=== PATIENT | female | born 1975 | race Caucasian/White ===

== ENCOUNTER 2016-05-31 14:45 | Emergency (ER) | payer OTHER ==
[~2016-05-31] VITALS: Ht 165.1 cm; Wt 47.3 kg
[~2016-05-31 14:45] MED LIST: ACT/35 PO; CYAN10002 IM; RABE20TA5 PO
[2016-05-31 14:48] VITALS: TEMP 36.7; Ht 165.1 cm; Wt 47.3 kg
[2016-05-31] MEDS ORDERED: SODIUM CHLORIDE 0.9% 1000ML 1,000 ML IV ONE (15:19)
[2016-05-31] MEDS ORDERED: HYDROmorphone INJ 1 MG/ML SYR IV STA ×2 (15:19→16:20)
[2016-05-31] MEDS ORDERED: SODIUM CHLORIDE 0.9% 1000ML 1,000 ML IV STA (15:19)
[2016-05-31] MEDS ORDERED: ONDANSETRON INJ 2 MG/ML 2 ML VIAL IV STA (15:19)
--- NOTE | 2016-05-31 15:29 | EMERGENCY ROOM VISIT NOTE ---
History Report prepared by Joceline: Letha Zhang Under the Supervision of: Dr. Fili Mejia M.D. First contact with patient: 15:01 Chief Complaint: ABDOMINAL PAIN Stated Complaint: FLARE UP FROM CROHNS DISEASE Nursing Triage Summary: Patient c/o abdominal pain and N/V. Denies diarrhea. Hx of crohns. History of Present Illness The patient is a 40 year old female who presents to the Emergency Room with complaints of constant right sided middle abdominal pain starting 1 day [employer]. The patient states that she has a history of Crohn's disease and has had a flair up for the last week with intermittent abdominal pain and then last night the pain worsened and became constant. The patient currently rates the pain as a 8/10 in severity. The patient states that her Crohn's disease is usually well manage and she last had surgery in 2013 with part of her intestines removed. She states that since she recently gave April 08, 2016 she has had more problems regarding her Crohn's disease. The patient states that she has had nausea, vomiting along with some lose stools along with her symptoms. The patient denies any melena, fever, chills, chest pain, sob, calf pain, urinary frequency or burning with urination or any recent sick contact or travel. The patient also denies any complications for having her child and denies any vaginal bleeding or discharge The patient states that she still has her gallbladder along with her appendix. 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 Review of Systems See HPI for pertinent positives & negatives. A total of 10 systems reviewed and were otherwise negative. Past Medical & Surgical Medical Problems: (1) Asthma (2) Crohn's disease (3) Rectovaginal fistula Old medical records were reviewed. Nurse's notes were reviewed and I agree with. Family History FHx: gallbladder disease Kidney disease Kidney stones Social History Smoking Status: Current Every Day Smoker Alcohol Use: none Drug Use: none Marital Status: Housing Status: lives with family Occupation Status: employed Current/Historical Medications Scheduled Azathioprine (Imuran), 150 MG PO DAILY Budesonide (Budesonide), 3 MG PO DAILY Cyanocobalamin (Cyanocobalamin), 1,000 MCG IM MONTHLY Ergocalciferol (Vitamin D 49943 Unit), 50,000 INTER.UNIT PO WK Scheduled PRN Oxycodone Immediate Rel Tab (Roxicodone Ir), 1-2 TAB PO Q6 PRN for Severe Pain Allergies Coded Allergies: Naproxen (Verified Allergy, Unknown, ., 05/31/16) Penicillins (Unverified Allergy, Unknown, ., 02/16/14) Venlafaxine (Verified Allergy, Unknown, ., 05/31/16) Physical Exam Vital Signs Date Time Temp Pulse Resp B/P Pulse Ox O2 Delivery O2 Flow Rate FiO2 05/31/16 18:33 71 18 107/65 97 05/31/16 16:30 69 20 97/57 98 Room Air 05/31/16 14:48 36.7 99 20 103/68 96 Room Air Physical Exam General: Uncomfortably appearing middle aged female, in no acute distress. Normal speech HEENT: Normal cephalic atraumatic. Pupils are equal round and reactive to light. Sclerae are anicteric. Extraocular movements are intact. Oropharynx is pink with moist mucous membranes. No swelling of the mouth lips or tongue. Neck: Supple with a midline trachea. No meningeal signs or stiffness, no JVD or bruits. No Stridor. Chest: Clear to auscultation bilaterally. No wheezes or rhonchi. No increased work of breathing. Heart: regular rate and rhythm. Abdomen: Mild diffuse tenderness mostly in upper right abdomen, no peritonitis. Extremities: No cyanosis clubbing or edema. No calf tenderness or assymetry Spine/Back. Non tender to palpation. No CVA tenderness Skin: Good turgor without rashes. Neurologic exam: Cranial nerves two through 12 are intact. Motor and sensation are intact and symmetrical throughout. Medical Decision & Procedures ER Provider Diagnostic Interpretation: CT results as stated below per my review and radiologist interpretation: ABDOMEN AND PELVIS CT WITH IV CONTRAST CT DOSE: 224.53 mGycm HISTORY: Pain. Nausea. eval for colitis, hematoma, etc TECHNIQUE: Multiaxial CT images of the abdomen and pelvis were performed following the use of intravenous contrast. COMPARISON STUDY: 02/17/2014 FINDINGS: Lung bases are clear. Liver spleen and pancreas appear unremarkable. The kidneys enhance uniformly. There are negative for hydronephrosis. Examination of bowel is compromised due to the essential absence of oral contrast. Possible mild thickening of the descending colon with trace pericolonic infiltrative change. Overall is considered nonobstructive. There are postoperative changes in the region of the terminal ileum and ileocecal valve. Uterus is retroflexed. It is bulky in appearance. It is similar as compared to the prior study. IMPRESSION: 1. Retroflexed uterus habitus somewhat bulky and a fibroid-like appearance. 2. Nonobstructive bowel pattern.. Trace colonic wall thickening with slight pericolonic infiltrative change of the descending, distal transverse, and proximal sigmoid colon raise the possibly of a low-grade colitis. 3. No acute process of the abdomen or pelvis other than that noted Electronically signed by: Margarito Kline M.D. 05/31/2016 4:56 PM Dictated Date/Time: 05/31/2016 4:51 PM Laboratory Results 05/31/16 15:40 Red Blood Count 4.42, Mean Corpuscular Volume 83.9, Mean Corpuscular Hemoglobin 28.7, Mean Corpuscular Hemoglobin Concent 34.2, Mean Platelet Volume 8.7, Neutrophils (%) (Auto) 60.8, Lymphocytes (%) (Auto) 34.1, Monocytes (%) (Auto) 3.9, Eosinophils (%) (Auto) 0.7, Basophils (%) (Auto) 0.4, Neutrophils # (Auto) 4.55, Lymphocytes # (Auto) 2.55, Monocytes # (Auto) 0.29, Eosinophils # (Auto) 0.05, Basophils # (Auto) 0.03 05/31/16 15:40 Test 05/31/16 15:40 05/31/16 16:35 White Blood Count 7.48 K/uL (4.8-10.8) Red Blood Count 4.42 M/uL (4.2-5.4) Hemoglobin 12.7 g/dL (12.0-16.0) Hematocrit 37.1 % (37-47) Mean Corpuscular Volume 83.9 fL (80-100) Mean Corpuscular Hemoglobin 28.7 pg (25-34) Mean Corpuscular Hemoglobin Concent 34.2 g/dl (32-36) Platelet Count 269 K/uL (130-400) Mean Platelet Volume 8.7 fL (7.4-10.4) Neutrophils (%) (Auto) 60.8 % Lymphocytes (%) (Auto) 34.1 % Monocytes (%) (Auto) 3.9 % Eosinophils (%) (Auto) 0.7 % Basophils (%) (Auto) 0.4 % Neutrophils # (Auto) 4.55 K/uL (1.4-6.5) Lymphocytes # (Auto) 2.55 K/uL (1.2-3.4) Monocytes # (Auto) 0.29 K/uL (0.11-0.59) Eosinophils # (Auto) 0.05 K/uL (0-0.5) Basophils # (Auto) 0.03 K/uL (0-0.2) RDW Standard Deviation 45.0 fL (36.4-46.3) RDW Coefficient of Variation 14.6 % (11.5-14.5) Immature Granulocyte % (Auto) 0.1 % Immature Granulocyte # (Auto) 0.01 K/uL (0.00-0.02) Prothrombin Time 10.6 SECONDS (9.0-12.0) Prothromb Time International Ratio 1.0 (0.9-1.1) Activated Partial Thromboplast Time 28.3 SECONDS (21.0-31.0) Partial Thromboplastin Ratio 1.1 Anion Gap 4.0 mmol/L (3-11) Est Creatinine Clear Calc Drug Dose 87.2 ml/min Estimated GFR () 129.4 Estimated GFR (Non- 111.6 BUN/Creatinine Ratio 8.9 (10-20) Calcium Level 8.8 mg/dl (8.5-10.1) Total Bilirubin 0.3 mg/dl (0.2-1) Direct Bilirubin mg/dl (0-0.2) Aspartate Amino Transf (AST/SGOT) 9 U/L (15-37) Alanine Aminotransferase (ALT/SGPT) 12 U/L (12-78) Alkaline Phosphatase 62 U/L (45-117) Total Protein 6.6 gm/dl (6.4-8.2) Albumin 3.5 gm/dl (3.4-5.0) Lipase 68 U/L (73-393) Human Chorionic Gonadotropin, Qual NEG (NEG) Chemistry Specimen Hemolysis Urine Color YELLOW Urine Appearance CLEAR (CLEAR) Urine pH 6.5 (4.5-7.5) Urine Specific [place] 1.005 (1.000-1.030) Urine Protein NEG (NEG) Urine Glucose (UA) NEG (NEG) Urine Ketones NEG (NEG) Urine Occult Blood NEG (NEG) Urine Nitrite NEG (NEG) Urine Bilirubin NEG (NEG) Urine Urobilinogen NEG (NEG) Urine Leukocyte Esterase NEG (NEG) Laboratory studies as stated above per my review. Medications Administered Medications (Trade) Dose Ordered Sig/Jocelyn Route Start Time Stop Time Status Last Admin Dose Admin Sodium Chloride (Nss 1000ml) 1,000 ml @ 999 mls/hr Q1H1M STAT IV 05/31/16 15:19 05/31/16 16:19 DC 05/31/16 15:42 999 MLS/HR Ondansetron HCl (Zofran Inj) 4 mg NOW STAT IV 05/31/16 15:19 05/31/16 15:21 DC 05/31/16 15:42 4 MG Hydromorphone HCl (Dilaudid Inj) 1 mg NOW STAT IV 05/31/16 15:19 05/31/16 15:21 DC 05/31/16 15:42 1 MG Hydromorphone HCl (Dilaudid Inj) 1 mg NOW STAT IV 05/31/16 16:20 05/31/16 16:21 DC 05/31/16 16:30 1 MG ED Course 1501: At this time the patient was evaluated by the medical student. The student s findings were discussed with me. We discussed a possible treatment plan and differential diagnoses for the patient. 1513:Past medical records reviewed. The patient was evaluated in room B6, and a complete history and physical examination were performed. 1519: Ordered Dilaudid Inj 1 mg IV, Zofran Inj 4 mg IV, Sodium Chloride 1,000 ml @ 200 mls/hr IV, Sodium Chloride 1,000 ml @ 999 mls/hr IV. 1619: I reevaluated the patient and she was waiting to be taking for a CT scan and was still having pain. 1620: Ordered Dilaudid Inj 1 mg IV. 1721: I discussed the case with Dr. Viramontes Gastroenterology. He states that the patient can call the office and he will see her, and to start the patient on prednisone. 1755: Upon reevaluation, the patient is resting comfortably. I discussed the results and treatment plan with her. She verbalized agreement of the treatment plan. The patient was discharged home. Medical Decision Differentials include, but are not limited to; gallbladder disease, chronic exacerbation of Crohn's, hematoma, infection, electrolyte or metabolic abnormality, and bowel obstruction. This patient comes in as described above. She was placed in room B6. She is here for treatment and evaluation of diffuse abdominal pain. She has a history of Crohn's disease and says that she's been having more of a problem with her Crohn's for the last couple months after she delivered. She is not breast- feeding . She's had no vaginal bleeding or discharge. She has been on Coumadin however she said they weaned her off recently. IV access established she tells me that she is not driving. she was given Dilaudid 1 mg IV and Zofran 4 mg IV. She required additional 1 mg of IV Dilaudid and was resting more comfortably. she has no white count or fever to suggest infection. she's not significantly anemic. She's has no significant electrolyte or metabolic abnormalities otherwise. I did do a CAT scan of her abdomen with IV contrast there findings consistent with a mild colitis. She has no other acute findings. I did discuss case with Dr. Viramontes, who is her gastroenterology, and he will have her call the office tomorrow to get see her he recommended started on prednisone 30 mgs a day for the next 10 days. I gave her small prescription for some pain medication OxyIR 5 mg that she can use a maximum 1-2 pills every 4-6 hours as needed. Was warned that this could make her drowsy and do not take before drinking, driving, working and do not take with any other pain medication. She was encouraged to return if : increasing pain, fever chills, worsening of symptoms, any new problems concerns. She is happy with plan and discharged to home. Consults Time Called: 1710 Consulting Physician: Dr. Viramontes Gastroenterology. Returned Call: 1721 I discussed the case with Dr. Viramontes Gastroenterology. He states that the patient can call the office and he will see her, and to start the patient on prednisone. Impression Primary Impression: Exacerbation of Crohn's disease Additional Impression: Diffuse abdominal pain Scribe Attestation The scribe's documentation has been prepared under my direction and personally reviewed by me in its entirety. I confirm that the note above accurately reflects all work, treatment, procedures, and medical decision making performed by me. Departure Information Dispostion Home / Self-Care Prescriptions Oxycodone Immediate Rel Tab (ROXICODONE IR) 5 Mg Tab 1-2 TAB PO Q6 Y for Severe Pain, #14 TAB Prov: Fili Mejia M.D. 05/31/16 Referrals Gabino Nelson M.D. (PCP) Forms Call Back Authorization, HOME CARE DOCUMENTATION FORM, IMPORTANT VISIT INFORMATION Patient Instructions My [facility] Additional Instructions Rest Drink plenty of fluids Return if: worsening of symptoms, increasing pain, fever, any new problems May use OxyIR 5 mg 1 or 2 pills every 6 hours as needed for pain OxyIR may make you drowsy and do not take before drinking, driving, working. Do not take with any other pain medications or alcohol Use prednisone 30 mg once a day for 10 [address] Follow up with Dr. Viramontes, call the office tomorrow and get rechecked this week Problem Qualifiers
[2016-05-31] MEDS ORDERED: OPTIRAY 320 IV PRN (15:30)
[2016-05-31] MEDS ORDERED: CYNI1000 IM (15:35)
[2016-05-31 15:55] LABS: BASO % 0.4 %; BASO ABS # 0.03 K/uL (0-0.2); COMPLETE YES; EOS % 0.7 %; HEMATOCRIT 37.1 % (37-47); IG% 0.1 %; LYMPH % 34.1 %; LYMPH ABS # 2.55 K/uL (1.2-3.4); MEAN CELL VOLUME 83.9 fL (80-100); MEAN CORPUSCULAR HEMOGLOBIN 28.7 pg (25-34); MEAN CORPUSCULAR HGB CONC 34.2 g/dl (32-36); MEAN PLATELET VOLUME 8.7 fL (7.4-10.4); MONO % 3.9 %; NEUT % 60.8 %; PLATELET COUNT 269 K/uL (130-400); RED BLOOD COUNT 4.42 M/uL (4.2-5.4); WHITE BLOOD COUNT 7.48 K/uL (4.8-10.8)
[2016-05-31 16:17] LABS: PARTIAL THROMBOPLASTIN RATIO 1.1; PROTHROMBIN TIME (PATIENT) 10.6 SECONDS (9.0-12.0)
[2016-05-31 16:21] LABS: PREG INTERNAL NEGATIVE QC NEG CLEAR BACKGROUND; PREG INTERNAL POSITIVE QC POS CONTROL LINE
[2016-05-31 16:26] LABS: ALKALINE PHOSPHATASE 62 U/L (45-117); ALT/SGPT 12 U/L (12-78); AST/SGOT 9 U/L (15-37); BLOOD UREA NITROGEN 6 mg/dl (7-18); BUN/CREATININE RATIO 8.9 (10-20); CALCIUM 8.8 mg/dl (8.5-10.1); CARBON DIOXIDE 27 mmol/L (21-32); CHLORIDE 111 mmol/L (98-107); CREATININE 0.64 mg/dl (0.60-1.20); GLUCOSE 91 mg/dl (70-99); POTASSIUM 3.8 mmol/L (3.5-5.1); SODIUM 142 mmol/L (136-145)
[2016-05-31 16:54] LABS: URINE APPEARANCE CLEAR (CLEAR); URINE BILIRUBIN NEG (NEG); URINE COLOR YELLOW; URINE NITRITE NEG (NEG); URINE PH 6.5 (4.5-7.5); URINE SPECIFIC GRAVITY 1.005 (1.000-1.030); UROBILINOGEN NEG (NEG)
--- NOTE | 2016-05-31 16:58 | DIAGNOSTIC IMAGING REPORT ---
ABDOMEN AND PELVIS CT WITH IV CONTRAST CT DOSE: 224.53 mGycm HISTORY: Pain. Nausea. eval for colitis, hematoma, etc TECHNIQUE: Multiaxial CT images of the abdomen and pelvis were performed following the use of intravenous contrast. COMPARISON STUDY: 02/17/2014 FINDINGS: Lung bases are clear. Liver spleen and pancreas appear unremarkable. The kidneys enhance uniformly. There are negative for hydronephrosis. Examination of bowel is compromised due to the essential absence of oral contrast. Possible mild thickening of the descending colon with trace pericolonic infiltrative change. Overall is considered nonobstructive. There are postoperative changes in the region of the terminal ileum and ileocecal valve. Uterus is retroflexed. It is bulky in appearance. It is similar as compared to the prior study. IMPRESSION: 1. Retroflexed uterus habitus somewhat bulky and a fibroid-like appearance. 2. Nonobstructive bowel pattern.. Trace colonic wall thickening with slight pericolonic infiltrative change of the descending, distal transverse, and proximal sigmoid colon raise the possibly of a low-grade colitis. 3. No acute process of the abdomen or pelvis other than that noted Electronically signed by: Margarito Kline M.D. 05/31/2016 4:56 PM Dictated Date/Time: 05/31/2016 4:51 PM
[2016-05-31 17:14] LABS: MANUAL MICROSCOPIC REQUIRED? NO; REVIEW REQ? NO
[2016-05-31] MEDS ORDERED: OXYC1TAB3 PO (18:10)
[2016-05-31 18:33] VITALS: BP 107/65; PULSE 71; O2SAT 97
[2016-05-31] MEDS ORDERED: AZAT50TA5 PO (19:29)
[2016-05-31] MEDS ORDERED: ERGO500037 PO (21:43)
[2016-05-31] MEDS ORDERED: BUDE0.09 PO (21:43)
== END 2016-05-31 18:34 | disposition home or self-care (01) ==
LOC: C.EDB 14:46
DX: K50.90 Crohn's disease, unspecified, without complications (principal); R10.9 Unspecified abdominal pain; J45.909 Unspecified asthma, uncomplicated; N82.3 Fistula of vagina to large intestine; F17.200 Nicotine dependence, unspecified, uncomplicated; Z79.899 Other long term (current) drug therapy; Z88.0 Allergy status to penicillin; Z88.8 Allergy status to other drugs, medicaments and biological substances; Z83.79 Family history of other diseases of the digestive system; Z84.1 Family history of disorders of kidney and ureter

== ENCOUNTER 2016-06-03 09:17 | Emergency (ER) | payer OTHER ==
[~2016-06-03] VITALS: Ht 165.1 cm; Wt 47.4 kg
[~2016-06-03 09:17] MED LIST changes: -ACT/35 PO; +AZAT50TA5 PO; +BUDE0.09 PO; -CYAN10002 IM; +CYNI1000 IM; +ERGO500037 PO; +OXYC1TAB3 PO; -RABE20TA5 PO
[2016-06-03 09:22] VITALS: TEMP 36.9; Ht 165.1 cm; Wt 47.4 kg
[2016-06-03] MEDS ORDERED: SODIUM CHLORIDE 0.9% 1000ML 2,000 ML IV STA (09:33)
[2016-06-03] MEDS ORDERED: SODIUM CHLORIDE 0.9% 1000ML 1,000 ML IV STA (09:33)
[2016-06-03 09:52] LABS: BASO % 0.8 %; BASO ABS # 0.05 K/uL (0-0.2); COMPLETE YES; EOS % 1.7 %; HEMATOCRIT 37.5 % (37-47); IG% 0.2 %; LYMPH % 43.1 %; LYMPH ABS # 2.84 K/uL (1.2-3.4); MEAN CELL VOLUME 84.7 fL (80-100); MEAN CORPUSCULAR HEMOGLOBIN 28.4 pg (25-34); MEAN CORPUSCULAR HGB CONC 33.6 g/dl (32-36); MEAN PLATELET VOLUME 8.6 fL (7.4-10.4); MONO % 5.5 %; NEUT % 48.7 %; PLATELET COUNT 270 K/uL (130-400); RED BLOOD COUNT 4.43 M/uL (4.2-5.4); WHITE BLOOD COUNT 6.59 K/uL (4.8-10.8)
[2016-06-03] MEDS ORDERED: ONDANSETRON 8 MG/54 ML D5W IV STA (09:53)
[2016-06-03] MEDS ORDERED: OPTIRAY 320 IV PRN (10:00)
[2016-06-03 10:07] LABS: ALT/SGPT 11 U/L (12-78); BLOOD UREA NITROGEN 4 mg/dl (7-18); CARBON DIOXIDE 25 mmol/L (21-32); CHLORIDE 113 mmol/L (98-107); CREATININE 0.68 mg/dl (0.60-1.20); GLUCOSE 87 mg/dl (70-99); POTASSIUM 3.5 mmol/L (3.5-5.1); SODIUM 144 mmol/L (136-145)
[2016-06-03 10:09] LABS: ALKALINE PHOSPHATASE 57 U/L (45-117); AST/SGOT 7 U/L (15-37)
[2016-06-03 10:10] LABS: CALCIUM 8.5 mg/dl (8.5-10.1)
[2016-06-03] MEDS: MoRPHine SULFATE 4 MG/ML 1 ML CARP\\VIAL IV PRN ×3 (10:19→13:19)
[2016-06-03 10:25] LABS: PREG INTERNAL NEGATIVE QC NEG CLEAR BACKGROUND; PREG INTERNAL POSITIVE QC POS CONTROL LINE
[2016-06-03 11:52] LABS: URINE APPEARANCE CLEAR (CLEAR); URINE BILIRUBIN NEG (NEG); URINE COLOR YELLOW; URINE EPITHELIAL CELL AUTO >30 /lpf (0-5); URINE NITRITE NEG (NEG); URINE SPECIFIC GRAVITY 1.008 (1.000-1.030); UROBILINOGEN NEG (NEG); ZZUR CULT IF INDIC CLEAN CATCH NO
[2016-06-03 11:53] LABS: MANUAL MICROSCOPIC REQUIRED? NO; REVIEW REQ? NO
--- NOTE | 2016-06-03 13:09 | DIAGNOSTIC IMAGING REPORT ---
ABDOMEN AND PELVIS CT WITH IV AND ORAL CONTRAST CT DOSE: 250.87 mGy.cm HISTORY: lower abd pain. crohn's. h/o rectovag? fistula TECHNIQUE: Multiaxial CT images of the abdomen and pelvis were performed following the use of intravenous and oral contrast. COMPARISON STUDY: Abdomen and pelvis CT 05/31/2016. FINDINGS: The lung bases are clear. No pneumoperitoneum. No pneumatosis. The liver, spleen, adrenal glands, and kidneys are unremarkable. No hydronephrosis. Small amount of hyperdense material layering within the gallbladder. This favors a small amount of sludge or vicarious excretion of contrast. The pancreas enhances normally. No retroperitoneal lymphadenopathy. Retroflexed uterus. No evidence for bowel obstruction. Prior ileocecectomy with anastomosis. Borderline mild colonic wall thickening for the degree of distention. Mild bladder wall thickening, unchanged. Small fat-containing umbilical hernia. IMPRESSION: 1. Borderline colonic wall thickening for the degree of distention. This could represent a low-grade pancolitis. 2. Small fat-containing umbilical hernia. 3. Mild bladder wall thickening. Recommend correlation with urinalysis to exclude a cystitis. Electronically signed by: Wilson Birmingham M.D. 06/03/2016 1:07 PM Dictated Date/Time: 06/03/2016 1:01 PM
[2016-06-03] MEDS ORDERED: PROM25TA9 PO (14:24)
[2016-06-03] MEDS ORDERED: OXYC1TAB3 PO (14:24)
[2016-06-03] MEDS ORDERED: NITR-5 PO (14:24)
[2016-06-03] MEDS ORDERED: NITROFURANTOIN MONOHYDRATE 100 MG CAP PO ONE (14:30)
[2016-06-03 15:45] VITALS: BP 94/60; PULSE 59; O2SAT 98
--- NOTE | 2016-06-03 17:41 | EMERGENCY ROOM VISIT NOTE ---
History Report prepared by Joceline: Radha Up Under the Supervision of: Dr. Carlitos Henriquez M.D. First contact with patient: 09:32 Chief Complaint: ABDOMINAL PAIN Stated Complaint: CROHN'S FLARE Nursing Triage Summary: Abdominal pain History of Present Illness The patient is a 40 year old female who presents to the Emergency Room with complaints of worsening right sided abdominal cramping that radiates to lower back and pelvic area. This pain started 3 days ago. Patient rates her discomfort an 9/10. Additional symptoms include a cough, vomiting, and diarrhea over past 3 days. Patient has a history of Crohn's Disease. She states that the symptoms she is experiencing today are similar to past Crohn's flares. 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 The patient does note some dysuria. Pt denies LOC, headache, fevers, chills, diaphoresis, visual changes, neck pain , chest pain, breathing difficulties, back pain, melena, hematochezia, numbness , weakness, lymphadenopathy, rash, or other complaints. Source of History: patient Onset: 3 days ago Position: abdomen (radiating to back and pelvis) Symptom Intensity: 9/10 Timing: worsening Modifying Factors (Relieving): other (None) Associated Symptoms: + cough, + diarrhea, + vomiting, No back pain, No chest pain, No chills, No diaphoresis, No fevers, No headache, No hematochezia, No lymphadenopathy, No melena, No neck pain, No rash, No weakness Review of Systems See HPI for pertinent positives and negatives. A total of ten systems were reviewed and were otherwise negative. Past Medical & Surgical Medical Problems: (1) Asthma (2) Crohn's disease (3) Rectovaginal fistula Family History FHx: gallbladder disease Kidney disease Kidney stones Social History Smoking Status: Current Every Day Smoker Alcohol Use: none Drug Use: none Marital Status: Housing Status: lives with family Occupation Status: employed Current/Historical Medications Scheduled Azathioprine (Imuran), 150 MG PO DAILY Cyanocobalamin (Cyanocobalamin), 1,000 MCG IM MONTHLY Ergocalciferol (Vitamin D 98021 Unit), 50,000 INTER.UNIT PO WK Nitrofurantoin Monohyd Macrocr (Macrobid), 100 MG PO BID Scheduled PRN Oxycodone Ir (Roxicodone Ir), 1-2 TAB PO Q4H PRN for Pain Promethazine Hcl (Phenergan), 25 MG PO Q6H PRN for Nausea Allergies Coded Allergies: Naproxen (Verified Allergy, Unknown, ., 06/03/16) Penicillins (Unverified Allergy, Unknown, ., 02/16/14) Venlafaxine (Verified Allergy, Unknown, ., 06/03/16) Physical Exam Vital Signs Date Time Temp Pulse Resp B/P Pulse Ox O2 Delivery O2 Flow Rate FiO2 06/03/16 15:45 59 16 94/60 98 06/03/16 13:18 74 12 112/72 97 Room Air 06/03/16 12:49 65 06/03/16 12:30 101 14 101/64 95 Room Air 06/03/16 11:30 66 16 108/66 99 Room Air 06/03/16 11:20 92 18 119/81 97 Room Air 06/03/16 11:19 84 17 89/59 98 Room Air 06/03/16 10:55 80 16 95/52 98 Room Air 06/03/16 10:27 66 12 101/59 97 06/03/16 10:13 62 14 111/67 97 Room Air 06/03/16 09:22 36.9 106 20 92/62 95 Room Air Physical Exam GENERAL: Awake, alert, uncomfortable appearing. HENT: Normocephalic, atraumatic. Oropharynx unremarkable. EYES: Normal conjunctiva. Sclera non-icteric. NECK: Supple. No nuchal rigidity. FROM. No JVD. RESPIRATORY: Clear to auscultation. CARDIAC: Borderline tachycardic heart rate, normal rhythm. Extremities warm and well perfused. Pulses equal. ABDOMEN: Right upper and right lower quadrant tenderness to palpation. Soft, non -distended. No rebound or guarding. No masses. RECTAL: Deferred. MUSCULOSKELETAL: Chest examination reveals no tenderness. The back is symmetrical on inspection without obvious abnormality. There is no CVA tenderness to palpation. No joint edema. LOWER EXTREMITIES: Calves are equal size bilaterally and non-tender. No edema. No discoloration. NEURO: Normal sensorium. No sensory or motor deficits noted. SKIN: No rash or jaundice noted. Medical Decision & Procedures ER Provider Diagnostic Interpretation: CT results as stated below per my review and radiologist interpretation. ABDOMEN AND PELVIS CT WITH IV AND ORAL CONTRAST CT DOSE: 250.87 mGy.cm HISTORY: lower abd pain. crohn's. h/o rectovag? fistula TECHNIQUE: Multiaxial CT images of the abdomen and pelvis were performed following the use of intravenous and oral contrast. COMPARISON STUDY: Abdomen and pelvis CT 05/31/2016. FINDINGS: The lung bases are clear. No pneumoperitoneum. No pneumatosis. The liver, spleen, adrenal glands, and kidneys are unremarkable. No hydronephrosis. Small amount of hyperdense material layering within the gallbladder. This favors a small amount of sludge or vicarious excretion of contrast. The pancreas enhances normally. No retroperitoneal lymphadenopathy. Retroflexed uterus. No evidence for bowel obstruction. Prior ileocecectomy with anastomosis. Borderline mild colonic wall thickening for the degree of distention. Mild bladder wall thickening, unchanged. Small fat-containing umbilical hernia. IMPRESSION: 1. Borderline colonic wall thickening for the degree of distention. This could represent a low-grade pancolitis. 2. Small fat-containing umbilical hernia. 3. Mild bladder wall thickening. Recommend correlation with urinalysis to exclude a cystitis. Electronically signed by: Wilson Birmingham M.D. 06/03/2016 1:07 PM Dictated Date/Time: 06/03/2016 1:01 PM Laboratory Results 06/03/16 09:40 Red Blood Count 4.43, Mean Corpuscular Volume 84.7, Mean Corpuscular Hemoglobin 28.4, Mean Corpuscular Hemoglobin Concent 33.6, Mean Platelet Volume 8.6, Neutrophils (%) (Auto) 48.7, Lymphocytes (%) (Auto) 43.1, Monocytes (%) (Auto) 5.5, Eosinophils (%) (Auto) 1.7, Basophils (%) (Auto) 0.8, Neutrophils # (Auto) 3.22, Lymphocytes # (Auto) 2.84, Monocytes # (Auto) 0.36, Eosinophils # (Auto) 0.11, Basophils # (Auto) 0.05 06/03/16 09:40 Test 06/03/16 09:40 06/03/16 11:10 White Blood Count 6.59 K/uL (4.8-10.8) Red Blood Count 4.43 M/uL (4.2-5.4) Hemoglobin 12.6 g/dL (12.0-16.0) Hematocrit 37.5 % (37-47) Mean Corpuscular Volume 84.7 fL (80-100) Mean Corpuscular Hemoglobin 28.4 pg (25-34) Mean Corpuscular Hemoglobin Concent 33.6 g/dl (32-36) Platelet Count 270 K/uL (130-400) Mean Platelet Volume 8.6 fL (7.4-10.4) Neutrophils (%) (Auto) 48.7 % Lymphocytes (%) (Auto) 43.1 % Monocytes (%) (Auto) 5.5 % Eosinophils (%) (Auto) 1.7 % Basophils (%) (Auto) 0.8 % Neutrophils # (Auto) 3.22 K/uL (1.4-6.5) Lymphocytes # (Auto) 2.84 K/uL (1.2-3.4) Monocytes # (Auto) 0.36 K/uL (0.11-0.59) Eosinophils # (Auto) 0.11 K/uL (0-0.5) Basophils # (Auto) 0.05 K/uL (0-0.2) RDW Standard Deviation 46.0 fL (36.4-46.3) RDW Coefficient of Variation 14.8 % (11.5-14.5) Immature Granulocyte % (Auto) 0.2 % Immature Granulocyte # (Auto) 0.01 K/uL (0.00-0.02) Anion Gap 6.0 mmol/L (3-11) Est Creatinine Clear Calc Drug Dose 82.3 ml/min Estimated GFR () 126.8 Estimated GFR (Non- 109.4 BUN/Creatinine Ratio 6.0 (10-20) Calcium Level 8.5 mg/dl (8.5-10.1) Total Bilirubin 0.3 mg/dl (0.2-1) Direct Bilirubin < 0.1 mg/dl (0-0.2) Aspartate Amino Transf (AST/SGOT) 7 U/L (15-37) Alanine Aminotransferase (ALT/SGPT) 11 U/L (12-78) Alkaline Phosphatase 57 U/L (45-117) Total Protein 6.5 gm/dl (6.4-8.2) Albumin 3.5 gm/dl (3.4-5.0) Lipase 84 U/L (73-393) Human Chorionic Gonadotropin, Qual NEG (NEG) Urine Color YELLOW Urine Appearance CLEAR (CLEAR) Urine pH 6.0 (4.5-7.5) Urine Specific Henderson 1.008 (1.000-1.030) Urine Protein NEG (NEG) Urine Glucose (UA) NEG (NEG) Urine Ketones NEG (NEG) Urine Occult Blood 3+ (NEG) Urine Nitrite NEG (NEG) Urine Bilirubin NEG (NEG) Urine Urobilinogen NEG (NEG) Urine Leukocyte Esterase TRACE (NEG) Urine WBC (Auto) 1-5 /hpf (0-5) Urine RBC (Auto) >30 /hpf (0-4) Urine Hyaline Casts (Auto) 1-5 /lpf (0-5) Urine Epithelial Cells (Auto) >30 /lpf (0-5) Urine Bacteria (Auto) NEG (NEG) Laboratory results reviewed by me Medications Administered Medications (Trade) Dose Ordered Sig/Jocelyn Route Start Time Stop Time Status Last Admin Dose Admin Sodium Chloride (Nss 1000ml) 2,000 ml @ 999 mls/hr Q2H1M STAT IV 06/03/16 09:33 06/03/16 11:33 DC 06/03/16 09:43 999 MLS/HR Morphine Sulfate (MoRPHine SULFATE INJ) 4 mg Q15M PRN IV 06/03/16 10:00 06/03/16 16:00 DC 06/03/16 13:19 4 MG Ondansetron HCl (Zofran 8mg Iv) 8 mg NOW STAT IV 06/03/16 09:53 06/03/16 09:55 DC 06/03/16 10:17 8 MG Nitrofurantoin Macrocrystals (Macrobid Cap) 100 mg ONE ONCE PO 06/03/16 14:30 06/03/16 14:31 DC 06/03/16 15:38 100 MG ED Course 0930: The patient was evaluated in room B5. A complete history and physical exam was performed. 0933: Ordered Sodium Chloride 1,000 ml @ 200 mls/hr IV, Sodium Chloride 2,000 ml @ 999 mls/hr IV. 0953: Ordered Zofran 8 mg IV. 1000: Ordered Morphine Sulfate 4 mg IV. 1246: Upon reevaluation, the patient will be heading to CT soon. 1430: Ordered Macrobid Cap 100 mg PO. 1420: Upon reevaluation, the patient would like to go home. I will discuss the patient's case with GI. 1501: I discussed the patient's case with Dr. Viramontes (GI). Patient saw Dr. Viramontes on Sunday where she was started on prednisone for Crohn's flare. Dr. Viramontes recommends treating symptomatically and have her follow up on Sunday. 1532: I reevaluated the patient. Discussed results and discharge instructions: She verbalized understanding and agreement. The patient is ready for discharge. Medical Decision Triage Nursing notes reviewed. The patient's presentation and history were concerning for abdominal pain and history of inflammatory bowel disease. Etiologies such as Crohn's exacerbation, appendicitis, diverticulitis, obstruction, inflammatory bowel disease, renal colic, PUD, biliary pathology, pancreatitis, mesenteric ischemia, aortic pathology, infections, genitourinary, UTI, perforated viscus, as well as others were entertained. The patient was evaluated. She was uncomfortable. The PDMP was reviewed. No current issues noted. The patient has had issues in the past noted in the EMR here with concerns for No scripts. She has known Crohn's disease. She had an unremarkable CBC. There was blood on urinalysis. She does note some discomfort with urinating. Her chem panel, LFTs and lipase, and test were negative. The patient underwent CT imaging and this did reveal pancolitis. No abscess. No obstruction. The patient also has a cystitis. She was given Macrobid. The patient does not want stay in the hospital. She would like to be treated as an outpatient. I did consult with her cold header, Dr. Viramontes. He had seen the patient at the end of the week and just started her on prednisone. He agreed with conservative management and treating her with antinausea and pain medication in limited amounts. She was given a small prescription for Phenergan and oxycodone. She will follow-up closely with him on Sunday. I instructed her to have a low threshold for coming back since she does not want to stay to be admitted. She is in agreement.I gave my usual and customary discussion regarding this issue. By the evaluation outlined above other emergent etiologies such as those listed in the differential, as well as others, were deemed relatively unlikely. The was informed about the findings as listed above. All questions were answered and she was pleased with the treatment. Return instructions were outlined and the patient was discharged in stable condition. The patient was referred to GI for follow-up Sunday for a recheck of the current condition. The chart was completed utilizing [employer] Speech voice recognition software. Grammatical errors, random word insertions, pronoun errors, and incomplete sentences are an occasional consequence of this system due to software limitations, ambient noise, and hardware issues. Any formal questions or concerns about the content, text, or information contained within the body of this dictation should be directly addressed to the physician for clarification. [place] Drug Monitoring Program Search Results: patient reviewed within database, no issues identified Consults Time Called: 1422 Consulting Physician: Dr. Viramontes (Jennifer ) Returned Call: 1501 I discussed the patient's case with Dr. Viramontes (Jennifer, ). Patient saw Dr. Viramontes on Sunday where she was started on prednisone for Crohn's flare. Dr. Viramontes recommends treating symptomatically and have her follow up on Sunday. Impression Primary Impression: Pancolitis Additional Impression: UTI (urinary tract infection) Scribe Attestation The scribe's documentation has been prepared under my direction and personally reviewed by me in its entirety. I confirm that the note above accurately reflects all work, treatment, procedures, and medical decision making performed by me. Departure Information Dispostion Home / Self-Care Prescriptions Nitrofurantoin Monohyd Macrocr (Macrobid) 100 Mg Cap 100 MG PO BID, #14 CAP Prov: Carlitos Henriquez MD 06/03/16 Promethazine Hcl (Phenergan) 25 Mg Tab 25 MG PO Q6H Y for Nausea, #10 TAB Prov: Carlitos Henriquez MD 06/03/16 Oxycodone Ir (Roxicodone Ir) 5 Mg Tab 1-2 TAB PO Q4H Y for Pain, #12 TAB Prov: Carlitos Henriquez MD 06/03/16 Referrals Elena Ellison PA-C (PCP) Forms Call Back Authorization, HOME CARE DOCUMENTATION FORM, IMPORTANT VISIT INFORMATION Patient Instructions My [facility] Additional Instructions DO NOT drive, drink alcohol, operate machinery, or perform dangerous activities today. You were given medications in the ER that can affect your ability to safely function or operate a vehicle. Oxycodone (OxyIR) 5mg: Take 1-2 pills every four hours for breakthrough pain. Avoid alcohol, operating machinery or dangerous equipment, working on ladders or roofs, DRIVING, or situations where being under the influence may be dangerous. It is recommended to use an [id number] stool softener such as Colace, 100mg twice daily while taking this medication to avoid constipation. Continue prednisone as prescribed by GI. Macrobid 100 mg twice daily as prescribed for 7 days for urinary tract infection. Acetaminophen(Tylenol) may be used for fever or pain. Use 1000mg every six hours as needed. Avoid using more than 4000mg in a 24 hour period. Phenergan(promethazine) tablets 25mg: Take one every six hours as needed for nausea. Avoid alcohol, operating machinery or dangerous equipment, working on ladders or roofs, DRIVING, or situations where being under the influence may be dangerous. Rest and drink plenty of fluids as tolerated. Slow sips of water or sports drinks are recommended instead of large amounts all at once. Continue current medications. Once your stomach is settled start with a clear liquid diet (jello, soup broth, etc.) and then advance as tolerated. You should avoid full, heavy meals for about 24 hrs from the time your symptoms resolved. Return to the ER immediately for worsening or persistent abdominal pain, vomiting, fevers, chest pains, difficulty breathing, black or bloody stools, worsening of your condition, or as needed. Follow up with Dr. Viramontes on Sunday for a recheck of your current condition. Problem Qualifiers
== END 2016-06-03 15:46 | disposition home or self-care (01) ==
LOC: C.EDB 09:21
DX: K51.00 Ulcerative (chronic) pancolitis without complications (principal); N39.0 Urinary tract infection, site not specified; J45.909 Unspecified asthma, uncomplicated; K50.90 Crohn's disease, unspecified, without complications; F17.200 Nicotine dependence, unspecified, uncomplicated

== ENCOUNTER 2016-06-05 10:51 | Emergency (ER) | payer OTHER ==
[~2016-06-05] VITALS: Ht 165.1 cm; Wt 48.7 kg
[~2016-06-05 10:51] MED LIST changes: -BUDE0.09 PO; +NITR-5 PO; +PROM25TA9 PO
[2016-06-05 10:56] VITALS: TEMP 36.7; Ht 165.1 cm; Wt 48.7 kg
[2016-06-05] MEDS ORDERED: ONDANSETRON INJ 2 MG/ML 2 ML VIAL IV STA (11:22)
[2016-06-05] MEDS ORDERED: SODIUM CHLORIDE 0.9% 1000ML 1,000 ML IV STA (11:22)
[2016-06-05] MEDS ORDERED: ONDA4TAB46 PO (11:24)
[2016-06-05] MEDS: MoRPHine SULFATE 4 MG/ML 1 ML CARP\\VIAL IV PRN ×2 (11:41→12:37)
[2016-06-05 11:47] LABS: MANUAL MICROSCOPIC REQUIRED? NO; REVIEW REQ? NO; URINE APPEARANCE CLOUDY (CLEAR); URINE BILIRUBIN NEG (NEG); URINE COLOR YELLOW; URINE EPITHELIAL CELL AUTO >30 /lpf (0-5); URINE NITRITE NEG (NEG); URINE PH 5.5 (4.5-7.5); URINE SPECIFIC GRAVITY 1.011 (1.000-1.030); UROBILINOGEN NEG (NEG)
[2016-06-05 11:53] LABS: BASO % 0.5 %; BASO ABS # 0.03 K/uL (0-0.2); COMPLETE YES; EOS % 1.6 %; HEMATOCRIT 36.9 % (37-47); IG% 0.2 %; LYMPH % 37.8 %; LYMPH ABS # 2.42 K/uL (1.2-3.4); MEAN CELL VOLUME 84.4 fL (80-100); MEAN CORPUSCULAR HEMOGLOBIN 29.1 pg (25-34); MEAN CORPUSCULAR HGB CONC 34.4 g/dl (32-36); MEAN PLATELET VOLUME 8.8 fL (7.4-10.4); MONO % 4.2 %; NEUT % 55.7 %; PLATELET COUNT 270 K/uL (130-400); RED BLOOD COUNT 4.37 M/uL (4.2-5.4)
[2016-06-05 12:27] LABS: ALT/SGPT 11 U/L (12-78); AST/SGOT < 3 U/L (15-37); BLOOD UREA NITROGEN 2 mg/dl (7-18); BUN/CREATININE RATIO 3.4 (10-20); CALCIUM 8.4 mg/dl (8.5-10.1); CARBON DIOXIDE 26 mmol/L (21-32); CHLORIDE 113 mmol/L (98-107); CREATININE 0.72 mg/dl (0.60-1.20); GLUCOSE 93 mg/dl (70-99); POTASSIUM 3.1 mmol/L (3.5-5.1); SODIUM 147 mmol/L (136-145)
[2016-06-05 12:29] LABS: ALKALINE PHOSPHATASE 57 U/L (45-117)
--- NOTE | 2016-06-05 12:30 | DIAGNOSTIC IMAGING REPORT ---
CHEST AND ABDOMEN 2 VIEWS HISTORY: Generalized abdominal pain. COMPARISON: Abdomen and pelvis CT 06/03/2016. FINDINGS: The lungs are clear. The heart is normal in size. No pleural effusions. No pneumothorax. No pneumoperitoneum or pneumatosis. No dilated loops of small bowel to suggest an obstruction. Borderline distended gas-filled colon within the left side the abdomen. There appears to be mild mucosal thickening within the left side of the colon. IMPRESSION: Borderline distended gas-filled colon within the left side the abdomen which appears to be slightly thickened. This likely represents a colitis. This is similar to the prior study. No evidence for small bowel obstruction. No acute process within the chest. Electronically signed by: Wilson Birmingham M.D. 06/05/2016 12:28 PM Dictated Date/Time: 06/05/2016 12:26 PM
[2016-06-05 13:29] VITALS: BP 118/72; PULSE 65; O2SAT 97
--- NOTE | 2016-06-05 19:28 | EMERGENCY ROOM VISIT NOTE ---
ED Visit Note First contact with patient: 11:01 Chief Complaint: Abdominal pain. History of Present Illness: Ms. Win is a 40 year-old white female who ambulates into the ED complaining of diffuse abdominal pain. Historically patient reports she has a history of Crohn's disease and how rectal vaginal fistula. She was seen in this ED 2 days ago for what was diagnosed as a Crohn's flare. Her air director was consulted during her evaluation and she was to have follow-up in his office today. She reports she could not get an appointment on Sunday and overnight into this morning her pain became severe. She was discharged home in stable condition with a prescription for OxyIR. Patient reports she was feeling much better after her visit 2 days ago. Yesterday, late afternoon/early evening, she reports having her Easter dinner then approximately 11:00 last evening, 12 hours ago, she started developing diffuse abdominal pain and bloating. She was able to go to sleep and then reports that 5 AM this morning, proximally 6 hours ago, she was awoken from sleep with nausea and feelings that she needed to defecate. She did go to the bathroom and reports she did not vomit but was not able to move her bowels or urinate. Currently she describes her diffuse abdominal pain as a sharp and throbbing sensation. There is no prominence of her pain within the abdomen. She does report her pain radiates into the lower back. She rates her discomfort 9/10. Her pain slightly improves when she lies on her right side and worsens when she lies on her back. She reports taking 5 mg OxyIR tablet approximately 3 hours ago with no relief of pain. Associated with her pain she reports she's been having chills and continues to be nauseated but has not vomited. Patient denies avila fevers, sweats, skin eruptions, skin color changes, upper respiratory tract symptoms, shortness of breath, chest pain, diarrhea, constipation, rectal bleeding, black/tarry stools, urinary symptoms, hematuria, vaginal bleeding, vaginal discharge. Review of Systems: As noted above in history of present illness. All body systems were reviewed and found to be negative as noted above. Past Medical History: As noted above and asthma. Current Medications: Medications Dose Route/Sig Max Daily Dose Days Date Category Dose Instructions Zofran (Ondansetron HCl) 4 Mg Tab 4 Mg PO Q6-Q8H PRN 4/17/17 Reported Roxicodone Ir (Oxycodone HCl) 5 Mg Tab 1-2 Tab PO Q4H PRN 06/03/16 Rx Cyanocobalamin 1,000 Mcg/Ml Inj 1,000 Mcg IM MONTHLY 05/31/16 Reported Vitamin D 08163 Unit (Ergocalciferol) 50,000 Unit Cap 50,000 Inter.unit PO WK 09/18/12 Reported TAKE THIS MEDICATION EVERY SUNDAY. Imuran (Azathioprine) 50 Mg Tab 150 Mg PO DAILY 09/06/12 Reported Allergies to Medications: Naproxen, penicillin, venlafaxine Social History: Patient is not employed; she feels safe in her home environment ; patient admits to tobacco use and denies alcohol use. Physical Examination: Vital Signs: Date Time Temp Pulse Resp B/P Pulse Ox O2 Delivery O2 Flow Rate FiO2 06/05/16 13:29 65 20 118/72 97 06/05/16 12:33 79 20 118/72 100 Room Air 06/05/16 11:56 52 06/05/16 10:56 36.7 109 18 122/83 95 Room Air GENERAL: 40-year-old female in mild to moderate distress due to pain, nontoxic- appearing, afebrile and hemodynamically stable. NEUROLOGICAL: Awake, alert and oriented to person, place and time. Answering questions appropriately and following commands. Normal gait. Good hand eye coordination. SKIN: Warm, dry and pink. No soft tissue eruptions or trauma noted. HEENT: Atraumatic and normocephalic. PERRLA. Sclera white and conjunctiva pink. Oral cavity moist and pink. Trachea midline. No jugular venous distention. BACK: No tenderness over the bony spine. No tenderness through the paraspinous musculature. No CVA tenderness. THORAX: Lungs sounds are clear to auscultation and equal bilaterally with symmetrical chest wall. No wheezing, rales or rhonchi. HEART: Regular rate and rhythm. No gallops, rubs or murmurs are appreciated. ABDOMEN: Flat and soft with diffuse tenderness throughout the abdomen. I do not appreciate any distention. Positive bowel sounds in all quadrants. No guarding, rigidity or organomegaly. EXTREMITIES: Moves all extremities well on command and with purpose. All distal neurovascular statuses are intact and equal bilaterally. ED Course: Patient is assessed as noted above. Laboratory Testing: Test 06/05/16 11:15 06/05/16 11:30 Range/Units Urine Color YELLOW Urine Appearance CLOUDY CLEAR Urine pH 5.5 4.5-7.5 Urine Specific [place] 1.011 1.000-1.030 Urine Protein NEG NEG Urine Glucose (UA) NEG NEG Urine Ketones NEG NEG Urine Occult Blood 3+ NEG Urine Nitrite NEG NEG Urine Bilirubin NEG NEG Urine Urobilinogen NEG NEG Urine Leukocyte Esterase NEG NEG Urine WBC (Auto) 1-5 0-5 /hpf Urine RBC (Auto) >30 0-4 /hpf Urine Hyaline Casts (Auto) 1-5 0-5 /lpf Urine Epithelial Cells (Auto) >30 0-5 /lpf Urine Bacteria (Auto) 1+ NEG White Blood Count 6.40 4.8-10.8 K/uL Red Blood Count 4.37 4.2-5.4 M/uL Hemoglobin 12.7 12.0-16.0 g/dL Hematocrit 36.9 37-47 % Mean Corpuscular Volume 84.4 80-100 fL Mean Corpuscular Hemoglobin 29.1 25-34 pg Mean Corpuscular Hemoglobin Concent 34.4 32-36 g/dl Platelet Count 270 130-400 K/uL Mean Platelet Volume 8.8 7.4-10.4 fL Neutrophils (%) (Auto) 55.7 % Lymphocytes (%) (Auto) 37.8 % Monocytes (%) (Auto) 4.2 % Eosinophils (%) (Auto) 1.6 % Basophils (%) (Auto) 0.5 % Neutrophils # (Auto) 3.57 1.4-6.5 K/uL Lymphocytes # (Auto) 2.42 1.2-3.4 K/uL Monocytes # (Auto) 0.27 0.11-0.59 K/uL Eosinophils # (Auto) 0.10 0-0.5 K/uL Basophils # (Auto) 0.03 0-0.2 K/uL RDW Standard Deviation 45.2 36.4-46.3 fL RDW Coefficient of Variation 14.5 11.5-14.5 % Immature Granulocyte % (Auto) 0.2 % Immature Granulocyte # (Auto) 0.01 0.00-0.02 K/uL Sodium Level 147 136-145 mmol/L Potassium Level 3.1 3.5-5.1 mmol/L Chloride Level 113 98-107 mmol/L Carbon Dioxide Level 26 21-32 mmol/L Anion Gap 8.0 3-11 mmol/L Blood Urea Nitrogen 2 7-18 mg/dl Creatinine 0.72 0.60-1.20 mg/dl Est Creatinine Clear Calc Drug Dose 79.9 ml/min Estimated GFR () 121.4 Estimated GFR (Non- 104.8 BUN/Creatinine Ratio 3.4 10-20 Random Glucose 93 70-99 mg/dl Calcium Level 8.4 8.5-10.1 mg/dl Total Bilirubin 0.5 0.2-1 mg/dl Direct Bilirubin 0.1 0-0.2 mg/dl Aspartate Amino Transf (AST/SGOT) < 3 15-37 U/L Alanine Aminotransferase (ALT/SGPT) 11 12-78 U/L Alkaline Phosphatase 57 45-117 U/L Total Protein 6.3 6.4-8.2 gm/dl Albumin 3.4 3.4-5.0 gm/dl Lipase 73 73-393 U/L Urine Culture: Pending Acute Abdominal Series: Was reviewed by myself and read by the radiologist showing borderline distended gas-filled: Within the left side of the abdomen which appear slightly thickened. This likely represents colitis. There is similar to a prior study. No evidence of bowel obstruction or free air. Patient was hydrated with normal saline and she received a total of 8 mg of morphine IV and 4 mg of Zofran IV. Patient was reassessed multiple times during her stay in the emergency department. Patient's case was reviewed with Dr. Gutierrez; we agreed on diagnostic approach, treatment, disposition and plan. Patient was educated about ashkanight's findings and instructed on her treatment plan; she verbalizes understanding and agreement with this plan. Clinical Impression: Abdominal pain. Hematuria. Decision-Making: Initially my differential diagnosis I considered bowel obstruction, colitis, urinary tract infection, perforated viscus and other causes. This is the patient's third visit in the last week and she is sent previous CAT scans with no significant findings. I deferred a third CT week. Her laboratory to her results shows no signs of acute infection or organ abnormality. Only concerning lab was hematuria without elevated white blood cells or bacteria. Disposition: Patient discharged home in stable condition; prior to departure she was reassessed and subjectively reported she was feeling better and rated her discomfort 5/10. Plan: Patient was encouraged to continue her current medications as prescribed. Case management has arranged for a follow-up visit with her air director' s office tomorrow at 3:00 and she was encouraged to keep that appointment. Patient was also encouraged to follow-up with family physician for recheck and urine reevaluation for her hematuria and culture results. Patient was encouraged return the ED for uncontrolled symptoms, fevers, vomiting , urinary symptoms or any new/concerning symptoms.
== END 2016-06-05 13:30 | disposition home or self-care (01) ==
LOC: C.EDB 10:52 → C.EDC 13:30
DX: R10.9 Unspecified abdominal pain (principal); R31.9 Hematuria, unspecified; K50.90 Crohn's disease, unspecified, without complications; J45.909 Unspecified asthma, uncomplicated; F17.200 Nicotine dependence, unspecified, uncomplicated; Z88.0 Allergy status to penicillin; Z88.8 Allergy status to other drugs, medicaments and biological substances

== ENCOUNTER 2016-06-27 23:49 | Emergency (ER) | payer OTHER ==
[~2016-06-27] VITALS: Ht 165.1 cm; Wt 47.5 kg
[~2016-06-27 23:49] MED LIST changes: -NITR-5 PO; +ONDA4TAB46 PO; -PROM25TA9 PO
[2016-06-28 00:03] VITALS: TEMP 36.6; Ht 165.1 cm; Wt 47.5 kg
[2016-06-28] MEDS ORDERED: SODIUM CHLORIDE 0.9% 1000ML 1,000 ML IV STA (00:21)
[2016-06-28] MEDS ORDERED: MoRPHine SULFATE 4 MG/ML 1 ML CARP\\VIAL IV STA (00:21)
[2016-06-28] MEDS ORDERED: PROCHLORPERAZINE 5 MG/ML 2 ML VIAL IV STA (00:21)
[2016-06-28] MEDS ORDERED: DiphenhydrAMINE HCL 50 MG/ML VIAL IV STA (00:21)
--- NOTE | 2016-06-28 00:33 | EMERGENCY ROOM VISIT NOTE ---
History Report prepared by Joceline: Elijah Wesley Under the Supervision of: Dr. Duong Munguia M.D. First contact with patient: 00:16 Chief Complaint: VOMITING Stated Complaint: STOMACH CRAMPS, VOMITING Nursing Triage Summary: N/V and abd pain since this morning. Hx of Chrons. History of Present Illness The patient is a 40 year old female who presents to the Emergency Room with complaints of worsening abdominal pain starting this morning. The patient states that she has Crohn's, and she takes Imuran, and she does not take any prednisone or pain medications. She states that she has not had a bowel movement since yesterday, and she has a history of a bowel obstruction. She denies any fevers. Source of History: patient Onset: this morning Position: abdomen Timing: worsening Associated Symptoms: No fevers Review of Systems See HPI for pertinent positives & negatives. A total of 10 systems reviewed and were otherwise negative. Past Medical & Surgical Medical Problems: (1) Asthma (2) Crohn's disease (3) Rectovaginal fistula Family History FHx: gallbladder disease Kidney disease Kidney stones Social History Smoking Status: Current Every Day Smoker Alcohol Use: none Drug Use: none Marital Status: Housing Status: lives with family Occupation Status: employed Current/Historical Medications Scheduled Azathioprine (Imuran), 150 MG PO DAILY Cyanocobalamin (Cyanocobalamin), 1,000 MCG IM MONTHLY Ergocalciferol (Vitamin D 77443 Unit), 50,000 INTER.UNIT PO WK Scheduled PRN Ondansetron Hcl (Zofran), 4 MG PO Q6-Q8H PRN for Nausea Allergies Coded Allergies: Naproxen (Verified Allergy, Unknown, ., 06/28/16) Penicillins (Unverified Allergy, Unknown, ., 06/28/16) Venlafaxine (Verified Allergy, Unknown, ., 06/28/16) Physical Exam Vital Signs Date Time Temp Pulse Resp B/P Pulse Ox O2 Delivery O2 Flow Rate FiO2 06/28/16 03:19 67 16 118/81 96 06/28/16 00:25 101 16 120/67 96 Room Air 06/28/16 00:03 36.6 125 20 97 Room Air Physical Exam GENERAL: Patient is uncomfortable appearing and in mild distress. HEENT: No acute trauma, normocephalic atraumatic, mucous membranes dry, no nasal congestion, no scleral icterus. NECK: No stridor, no adenopathy, no meningismus, trachea is midline. LUNGS: No dyspnea. Clear to auscultation and equal bilaterally. No wheeze, no rhonchi. HEART: Regular rate and rhythm. No murmurs, rubs, gallops appreciated. ABDOMEN: Vague tenderness in the entire abdomen. Soft, bowel sounds positive, no masses appreciated, no peritonitis. BACK: No midline tenderness, no CVA tenderness EXTREMITIES: Normal motion all extremities, no cyanosis, no edema. NEUROLOGIC: Alert and oriented, no acute motor or sensory deficits, no focal weakness, cranial nerves grossly intact. SKIN: No rash, no jaundice, no diaphoresis. Medical Decision & Procedures ER Provider Diagnostic Interpretation: X ray results are stated below per my interpretation: Multiple View Abdomen: No free air. Non-specific bowel gas dilation with questionable air fluid levels. Radiology results and stated below per my review and radiologist interpretation: CT ABDOMEN & PELVIS: Comparison: CT dated 06/03/2016. Air-fluid levels throughout most of the colon suggestive of diarrheal state with several areas of colonic wall thickening versus underdistention. Mild colitis not excluded. No evidence of small bowel obstruction, significant small bowel wall thickening or free air. Nonspecific focal area of groundglass opacity in the left lower lobe measuring approximately 9 mm. This finding is new compared to 06/03/2016 and may be infectious/inflammatory. Attention on follow-up imaging recommended to ensure resolution. Atherosclerosis along the infrarenal abdominal aorta. No aneurysm. Small fat-containing umbilical hernia. Laboratory Results 06/28/16 00:40 Red Blood Count 4.55, Mean Corpuscular Volume 87.7, Mean Corpuscular Hemoglobin 29.2, Mean Corpuscular Hemoglobin Concent 33.3, Mean Platelet Volume 8.5, Neutrophils (%) (Auto) 65.9, Lymphocytes (%) (Auto) 27.7, Monocytes (%) (Auto) 4.7, Eosinophils (%) (Auto) 1.3, Basophils (%) (Auto) 0.2, Neutrophils # (Auto) 9.44, Lymphocytes # (Auto) 3.96, Monocytes # (Auto) 0.68, Eosinophils # (Auto) 0.18, Basophils # (Auto) 0.03 06/28/16 00:40 Test 06/28/16 00:35 06/28/16 00:40 Urine Color YELLOW Urine Appearance CLEAR (CLEAR) Urine pH 6.0 (4.5-7.5) Urine Specific [place] 1.006 (1.000-1.030) Urine Protein NEG (NEG) Urine Glucose (UA) NEG (NEG) Urine Ketones NEG (NEG) Urine Occult Blood NEG (NEG) Urine Nitrite NEG (NEG) Urine Bilirubin NEG (NEG) Urine Urobilinogen NEG (NEG) Urine Leukocyte Esterase NEG (NEG) Urine WBC (Auto) 0 /hpf (0-5) Urine RBC (Auto) 0-4 /hpf (0-4) Urine Hyaline Casts (Auto) 0 /lpf (0-5) Urine Epithelial Cells (Auto) 5-10 /lpf (0-5) Urine Bacteria (Auto) NEG (NEG) Urine Test NEG (NEG) White Blood Count 14.32 K/uL (4.8-10.8) Red Blood Count 4.55 M/uL (4.2-5.4) Hemoglobin 13.3 g/dL (12.0-16.0) Hematocrit 39.9 % (37-47) Mean Corpuscular Volume 87.7 fL (80-100) Mean Corpuscular Hemoglobin 29.2 pg (25-34) Mean Corpuscular Hemoglobin Concent 33.3 g/dl (32-36) Platelet Count 287 K/uL (130-400) Mean Platelet Volume 8.5 fL (7.4-10.4) Neutrophils (%) (Auto) 65.9 % Lymphocytes (%) (Auto) 27.7 % Monocytes (%) (Auto) 4.7 % Eosinophils (%) (Auto) 1.3 % Basophils (%) (Auto) 0.2 % Neutrophils # (Auto) 9.44 K/uL (1.4-6.5) Lymphocytes # (Auto) 3.96 K/uL (1.2-3.4) Monocytes # (Auto) 0.68 K/uL (0.11-0.59) Eosinophils # (Auto) 0.18 K/uL (0-0.5) Basophils # (Auto) 0.03 K/uL (0-0.2) RDW Standard Deviation 49.0 fL (36.4-46.3) RDW Coefficient of Variation 15.3 % (11.5-14.5) Immature Granulocyte % (Auto) 0.2 % Immature Granulocyte # (Auto) 0.03 K/uL (0.00-0.02) Anion Gap 5.0 mmol/L (3-11) Est Creatinine Clear Calc Drug Dose 81.3 ml/min Estimated GFR () 126.2 Estimated GFR (Non- 108.9 BUN/Creatinine Ratio 11.5 (10-20) Calcium Level 8.8 mg/dl (8.5-10.1) Total Bilirubin 0.3 mg/dl (0.2-1) Direct Bilirubin < 0.1 mg/dl (0-0.2) Aspartate Amino Transf (AST/SGOT) 6 U/L (15-37) Alanine Aminotransferase (ALT/SGPT) 16 U/L (12-78) Alkaline Phosphatase 64 U/L (45-117) C-Reactive Protein < 0.29 mg/dl (0-0.29) Total Protein 7.1 gm/dl (6.4-8.2) Albumin 3.6 gm/dl (3.4-5.0) Lipase 115 U/L (73-393) Laboratory results as reviewed by me. Medications Administered Medications (Trade) Dose Ordered Sig/Jocelyn Route Start Time Stop Time Status Last Admin Dose Admin Sodium Chloride (Nss 1000ml) 1,000 ml @ 999 mls/hr Q1H1M STAT IV 06/28/16 00:21 06/28/16 01:21 DC 06/28/16 00:51 999 MLS/HR Prochlorperazine Edisylate (Compazine Inj) 10 mg NOW STAT IV 06/28/16 00:21 06/28/16 00:23 DC 06/28/16 00:51 10 MG Diphenhydramine HCl (Benadryl Inj) 50 mg NOW STAT IV 06/28/16 00:21 06/28/16 00:23 DC 06/28/16 00:51 50 MG Morphine Sulfate (MoRPHine SULFATE INJ) 4 mg NOW STAT IV 06/28/16 00:21 06/28/16 00:23 DC 06/28/16 00:52 4 MG Morphine Sulfate (MoRPHine SULFATE INJ) 6 mg NOW STAT IV 06/28/16 01:24 06/28/16 01:25 DC 06/28/16 01:52 6 MG ED Course 0016: The patient was evaluated in room B9. A complete history and physical exam was performed. 0021: Morphine Sulfate 4 mg IV, Benadryl Inj 50mg IV, Compazine Inj 10mg IV, Sodium Chloride 1000 ml @ 999 mls/hr IV 0120: I reevaluated the patient, and she states that she is feeling a little better. 0124: Morphine Sulfate 6mg IV 0305: Reevaluated the patient, and I stressed the importance of calling her PCP and GI specialist tomorrow. Discussed results and discharge instructions: She verbalized understanding and agreement. The patient is ready for discharge. Medical Decision Differential: Appendicitis, Diverticulitis, PUD/Gastritis, Biliary Pathology, UTI, Pyelonephritis, Renal Colic, Bowel Obstruction, Aortic Pathology, Acute Coronary Syndrome, Crohn's flare amongst other pathologies entertained. 40 yr old female with chronic abdominal pain issues arrives for evaluation of continued pain and vomiting over last few weeks. Notes worsening last 24 hours and states she feels like she has another bowel obstruction. States that she is not able to have bowel movement. Non-specific abdo xrays though patient complaining of more and more pain thus felt compelled to do CT abdo/pelv even though she had one just a week ago. CT with evidence of colonic liquid stool, and patient now states she is having diarrhea. Labs with mild WBC elevation consistent with recent steroid use and CRP is not elevated. I do not feel this is crohn's flare up nor that she needs further steroids. She notes she is feeling well enough to go home. I made my concerns to her that she initially told me that she had not gotten narc rx from anyone but this ER which by PDMP is clearly false. I made my concerns to her that she is coming in quite frequently over last few weeks. She is aware if she wishes further narcotics she is to be following with her PCP/Gastro. Stable and breathing comfortably. Reviewed symptoms requiring RTED. She does not have surgical abdomen and I do not feel that she requires surgery evaluation at this time. [place] Drug Monitoring Program Search Results: patient reviewed within database Drug Monitoring Findings: Multiple narcotic prescriptions from multiple different doctors over the past few weeks. Impression Primary Impression: Nausea, vomiting, and diarrhea Additional Impression: Diffuse abdominal pain Scribe Attestation The scribe's documentation has been prepared under my direction and personally reviewed by me in its entirety. I confirm that the note above accurately reflects all work, treatment, procedures, and medical decision making performed by me. Departure Information Dispostion Home / Self-Care Referrals Elena Ellison PA-C (PCP) Forms HOME CARE DOCUMENTATION FORM, IMPORTANT VISIT INFORMATION Patient Instructions Abdominal Pain - [facility], [facility] Additional Instructions You must follow up with your primary care provider and GI specialist as soon as possible. Problem Qualifiers
[2016-06-28 00:51] LABS: BASO % 0.2 %; BASO ABS # 0.03 K/uL (0-0.2); COMPLETE YES; EOS % 1.3 %; HEMATOCRIT 39.9 % (37-47); IG% 0.2 %; LYMPH % 27.7 %; LYMPH ABS # 3.96 K/uL (1.2-3.4); MEAN CELL VOLUME 87.7 fL (80-100); MEAN CORPUSCULAR HEMOGLOBIN 29.2 pg (25-34); MEAN CORPUSCULAR HGB CONC 33.3 g/dl (32-36); MEAN PLATELET VOLUME 8.5 fL (7.4-10.4); MONO % 4.7 %; NEUT % 65.9 %; PLATELET COUNT 287 K/uL (130-400); RED BLOOD COUNT 4.55 M/uL (4.2-5.4); WHITE BLOOD COUNT 14.32 K/uL (4.8-10.8)
[2016-06-28 00:58] LABS: URINE APPEARANCE CLEAR (CLEAR); URINE BILIRUBIN NEG (NEG); URINE COLOR YELLOW; URINE NITRITE NEG (NEG); URINE SPECIFIC GRAVITY 1.006 (1.000-1.030); UROBILINOGEN NEG (NEG); ZZUR CULT IF INDIC CLEAN CATCH NO
[2016-06-28 01:00] LABS: MANUAL MICROSCOPIC REQUIRED? NO; REVIEW REQ? NO
[2016-06-28 01:10] LABS: ALT/SGPT 16 U/L (12-78); AST/SGOT 6 U/L (15-37); BLOOD UREA NITROGEN 8 mg/dl (7-18); BUN/CREATININE RATIO 11.5 (10-20); CALCIUM 8.8 mg/dl (8.5-10.1); CARBON DIOXIDE 27 mmol/L (21-32); CHLORIDE 111 mmol/L (98-107); CREATININE 0.69 mg/dl (0.60-1.20); GLUCOSE 123 mg/dl (70-99); POTASSIUM 3.1 mmol/L (3.5-5.1); SODIUM 143 mmol/L (136-145)
[2016-06-28 01:12] LABS: ALKALINE PHOSPHATASE 64 U/L (45-117); C-REACTIVE PROTEIN < 0.29 mg/dl (0-0.29)
[2016-06-28] MEDS ORDERED: MoRPHine SULFATE 10 MG/ML CARP/VIAL IV STA (01:24)
[2016-06-28] MEDS ORDERED: OPTIRAY 320 IV PRN (02:00)
[2016-06-28 03:19] VITALS: BP 118/81; PULSE 67; O2SAT 96
--- NOTE | 2016-06-28 07:38 | DIAGNOSTIC IMAGING REPORT ---
CT OF THE ABDOMEN AND PELVIS WITH CONTRAST CLINICAL HISTORY: Diffuse abdominal pain. Abnormal radiographs. Crohn's disease. COMPARISON STUDY: CT of the abdomen and pelvis June 03, 2016 and abdominal series June 28, 2016. TECHNIQUE: Following IV administration of 93 mL of Optiray-320, axial images of the abdomen and pelvis were obtained from the lung bases to the proximal femurs. Images were reviewed in the axial, sagittal, and coronal planes. IV contrast was administered without complication. CT DOSE: 259.59 mGy.cm FINDINGS: A 1 cm groundglass opacity within left lower lobe is new since exam of June 03, 2016. No pneumatosis, free air or portal venous gas is present. The liver, spleen, adrenal glands, kidneys and pancreas are normal. Fat-containing ventral/umbilical hernias are noted. There is no evidence for a bowel obstruction. Mild colonic wall thickening is noted. The colon is fluid-filled. There is no evidence for a small bowel obstruction. There are findings suggestive of an ileocecectomy. There is no abscess. Skeletal structures are nonremarkable. IMPRESSION: 1. Mild colonic wall thickening which suggests a colitis which could be inflammatory or infectious. Fluid filled colon may reflect a diarrheal state. 2. Interval development of a 1 cm groundglass opacity within the left lower lobe since CT of June 03, 2016. Therefore, this is likely infectious. 3. No bowel obstruction. Electronically signed by: Quincy Maxwell M.D. 06/28/2016 7:36 AM Dictated Date/Time: 06/28/2016 7:30 AM
--- NOTE | 2016-06-28 07:55 | DIAGNOSTIC IMAGING REPORT ---
PA CHEST RADIOGRAPH AND UPRIGHT AND SUPINE AP RADIOGRAPHS OF THE ABDOMEN CLINICAL HISTORY: Vomiting, abdominal pain, crohn's COMPARISON STUDY: Abdominal series with chest radiograph June 05, 2016. FINDINGS: Nipple shadow projects of the left lower lung. There is no pneumothorax or pleural effusion. Pulmonary vascularity is normal. Cardiac size is normal. There is no free air. There is slight gaseous distention of the colon. There is no convincing evidence for a bowel obstruction. IMPRESSION: 1. No free air. 2. Mild gaseous distention of the colon without evidence of a bowel obstruction. Electronically signed by: Quincy Maxwell M.D. 06/28/2016 7:54 AM Dictated Date/Time: 06/28/2016 7:53 AM
== END 2016-06-28 03:20 | disposition home or self-care (01) ==
LOC: C.EDB 23:50
DX: R10.9 Unspecified abdominal pain (principal); R11.2 Nausea with vomiting, unspecified; R19.7 Diarrhea, unspecified; J45.909 Unspecified asthma, uncomplicated; K50.90 Crohn's disease, unspecified, without complications; F17.200 Nicotine dependence, unspecified, uncomplicated; Z79.899 Other long term (current) drug therapy; Z88.0 Allergy status to penicillin; Z88.8 Allergy status to other drugs, medicaments and biological substances; Z83.79 Family history of other diseases of the digestive system; Z84.1 Family history of disorders of kidney and ureter

== ENCOUNTER 2016-07-05 14:15 | Emergency (ER) | payer OTHER ==
[~2016-07-05] VITALS: Ht 165.1 cm; Wt 47.0 kg
[~2016-07-05 14:15] MED LIST changes: -OXYC1TAB3 PO
[2016-07-05 14:17] VITALS: TEMP 37.1; Ht 165.1 cm; Wt 47.0 kg
[2016-07-05] MEDS ORDERED: ONDANSETRON INJ 2 MG/ML 2 ML VIAL IV STA (15:16)
[2016-07-05] MEDS ORDERED: SODIUM CHLORIDE 0.9% 1000ML 1,000 ML IV STA (15:16)
[2016-07-05 15:29] LABS: BASO % 0.4 %; BASO ABS # 0.04 K/uL (0-0.2); COMPLETE YES; EOS % 1.2 %; HEMATOCRIT 40.8 % (37-47); IG% 0.3 %; LYMPH % 39.4 %; LYMPH ABS # 4.04 K/uL (1.2-3.4); MEAN CELL VOLUME 86.8 fL (80-100); MEAN CORPUSCULAR HEMOGLOBIN 29.6 pg (25-34); MEAN CORPUSCULAR HGB CONC 34.1 g/dl (32-36); MEAN PLATELET VOLUME 8.5 fL (7.4-10.4); NEUT % 55.7 %; PLATELET COUNT 345 K/uL (130-400); WHITE BLOOD COUNT 10.25 K/uL (4.8-10.8)
[2016-07-05 15:34] LABS: URINE APPEARANCE CLEAR (CLEAR); URINE BILIRUBIN NEG (NEG); URINE COLOR YELLOW; URINE NITRITE NEG (NEG); URINE PH 5.5 (4.5-7.5); URINE SPECIFIC GRAVITY 1.009 (1.000-1.030); UROBILINOGEN NEG (NEG)
[2016-07-05] MEDS ORDERED: MoRPHine SULFATE 4 MG/ML 1 ML CARP\\VIAL IV STA (15:35)
[2016-07-05 15:37] LABS: MANUAL MICROSCOPIC REQUIRED? NO; REVIEW REQ? NO
[2016-07-05 15:53] LABS: ALT/SGPT 15 U/L (12-78); AST/SGOT 9 U/L (15-37); BLOOD UREA NITROGEN 8 mg/dl (7-18); CALCIUM 9.2 mg/dl (8.5-10.1); CARBON DIOXIDE 28 mmol/L (21-32); CHLORIDE 109 mmol/L (98-107); GLUCOSE 106 mg/dl (70-99); POTASSIUM 3.7 mmol/L (3.5-5.1); SODIUM 143 mmol/L (136-145)
[2016-07-05 15:58] LABS: ALKALINE PHOSPHATASE 64 U/L (45-117)
[2016-07-05 16:00] LABS: BENZODIAZEPINE, URINE NEG (NEG); COCAINE,URINE NEG (NEG); PHENCYCLIDINE, URINE NEG (NEG)
[2016-07-05 16:06] VITALS: BP 95/60; PULSE 75; O2SAT 95
--- NOTE | 2016-07-05 16:54 | DIAGNOSTIC IMAGING REPORT ---
PA CHEST WITH ABDOMINAL SERIES CLINICAL HISTORY: Generalized abdominal pain. Nausea, vomiting, and diarrhea. FINDINGS: A PA chest radiograph is compared to study dated 06/28/2016. The cardiomediastinal silhouette is unremarkable. Nipple shadows project over the lower lobes. The lungs and pleural spaces are clear. No pneumothorax is seen. There are healed right-sided rib fractures. Supine and erect abdominal radiographs are compared to abdominal radiographs and abdominal CT dated 06/28/2016. There is a nonobstructed abdominal bowel gas pattern. No evidence of intraperitoneal free air is seen. Small phleboliths are observed in the pelvis. The lumbosacral spine and bony pelvis appear intact. Gluteal calcifications are noted. IMPRESSION: 1. No active disease in the chest. 2. Nonobstructed abdominal bowel gas pattern. 3. Findings of colitis seen on the recent abdominal CT scan were not apparent by x-ray. Electronically signed by: Micheal Kidd M.D. 07/05/2016 4:52 PM Dictated Date/Time: 07/05/2016 4:50 PM
--- NOTE | 2016-07-05 22:41 | EMERGENCY ROOM VISIT NOTE ---
History First contact with patient: 14:55 Chief Complaint: ABDOMINAL PAIN Stated Complaint: STOMACH PAIN, NAUSEA, DIARRHEA Nursing Triage Summary: left flank pain since about 0500 this am tender to palpation 4 bowel movements today, able to urinate, fully emptying bladder History of Present Illness The patient is a 40 year old female who presents to the Emergency Room with complaints of stomach pain, nausea, vomiting and diarrhea. The patient reports that symptoms started around 5 AM this morning. The patient has a history of Crohn's disease. She admits to eating a sausage sandwich last night which probably caused her symptoms. She now rates her discomfort a 9 out of 10. The patient is currently under the management of Dr. Viramontes [facility] java flex developer. The patient reports that she was recently treated with Cipro and Flagyl for 2 week period of time. She does not recall having any recent positive Clostridium difficile cultures. The patient reports having a colonoscopy scheduled for next week. She is currently on Imuran and prednisone tapered. She has not noticed any bloody stool. Review of Systems HEENT: Denies dizziness, visual problems, hearing loss, tinnitus. Denies difficulty swallowing or oral lesions. PULMONARY: Denies cough, shortness of breath, sputum production or hemoptysis. CARDIOVASCULAR: Denies chest pain, palpitations, dyspnea on exertion, orthopnea or peripheral edema. GASTROINTESTINAL: See history of present illness. GENITOURINARY: Denies dysuria, frequency, urgency or nocturia. NEUROLOGIC: Denies history of epilepsy, CVA, TIA or chronic headaches. MUSCULOSKELETAL: Denies history of joint tenderness/swelling. SKIN: Denies rashes or lesions. PSYCHIATRIC: Denies history of depression or mental illness. ENDOCRINE: Denies history of diabetes or thyroid disorders. Past Medical/Surgical History Medical Problems: (1) Asthma (2) Crohn's disease (3) Rectovaginal fistula Family History FHx: gallbladder disease Kidney disease Kidney stones Social History Smoking Status: Current Every Day Smoker Alcohol Use: none Drug Use: none Marital Status: Housing Status: lives with family Occupation Status: employed Current/Historical Medications Scheduled Azathioprine (Imuran), 150 MG PO DAILY Cyanocobalamin (Cyanocobalamin), 1,000 MCG IM MONTHLY Ergocalciferol (Vitamin D 56912 Unit), 50,000 INTER.UNIT PO WK Scheduled PRN Ondansetron Hcl (Zofran), 4 MG PO Q6-Q8H PRN for Nausea Allergies Coded Allergies: Naproxen (Verified Allergy, Unknown, ., 06/28/16) Penicillins (Unverified Allergy, Unknown, ., 06/28/16) Venlafaxine (Verified Allergy, Unknown, ., 06/28/16) Physical Exam Vital Signs Date Time Temp Pulse Resp B/P Pulse Ox O2 Delivery O2 Flow Rate FiO2 07/05/16 16:58 07/05/16 16:06 75 18 95/60 95 Room Air 07/05/16 14:17 37.1 102 20 106/77 96 Room Air Pain Rating (0-10): 3.0 Physical Exam CONSTITUTIONAL: Healthy and well nourished. Alert and oriented X 3. The patient appears in moderate discomfort from pain when I'm in the room. When viewed from a distance, she does not appear in any acute distress. PSYCHIATRIC: Positive affect. HEENT: Normocephalic, atraumatic. Pupils equal, round and reactive. No scleral icterus or conjunctival injection/pallor. NECK: Full active range of motion without discomfort. No JVD or carotid bruits. RESPIRATORY: Clear to auscultation bilaterally with no wheezing, crackles, rhonchi or stridor. CARDIOVASCULAR: Regular rate and rhythm with no murmurs, rubs or gallops. GASTROINTESTINAL: Bowel sounds present in all quadrants. The patient has generalized nonfocal tenderness to palpation of the abdomen. Negative McBurney' s point tenderness. No hepatosplenomegaly. Negative CVA tenderness. No abdominal rigidity, guarding or rebound. MUSCULOSKELETAL: Full range of motion of all joints without discomfort. INTEGUMENTARY: No rash or other significant dermatologic conditions noted. NEUROLOGIC: No focal neurologic deficits noted. Medical Decision & Procedures Laboratory Results 07/05/16 15:16 Red Blood Count 4.70, Mean Corpuscular Volume 86.8, Mean Corpuscular Hemoglobin 29.6, Mean Corpuscular Hemoglobin Concent 34.1, Mean Platelet Volume 8.5, Neutrophils (%) (Auto) 55.7, Lymphocytes (%) (Auto) 39.4, Monocytes (%) (Auto) 3.0, Eosinophils (%) (Auto) 1.2, Basophils (%) (Auto) 0.4, Neutrophils # (Auto) 5.71, Lymphocytes # (Auto) 4.04, Monocytes # (Auto) 0.31, Eosinophils # (Auto) 0.12, Basophils # (Auto) 0.04 07/05/16 15:16 Test 07/05/16 15:16 07/05/16 15:20 White Blood Count 10.25 K/uL (4.8-10.8) Red Blood Count 4.70 M/uL (4.2-5.4) Hemoglobin 13.9 g/dL (12.0-16.0) Hematocrit 40.8 % (37-47) Mean Corpuscular Volume 86.8 fL (80-100) Mean Corpuscular Hemoglobin 29.6 pg (25-34) Mean Corpuscular Hemoglobin Concent 34.1 g/dl (32-36) Platelet Count 345 K/uL (130-400) Mean Platelet Volume 8.5 fL (7.4-10.4) Neutrophils (%) (Auto) 55.7 % Lymphocytes (%) (Auto) 39.4 % Monocytes (%) (Auto) 3.0 % Eosinophils (%) (Auto) 1.2 % Basophils (%) (Auto) 0.4 % Neutrophils # (Auto) 5.71 K/uL (1.4-6.5) Lymphocytes # (Auto) 4.04 K/uL (1.2-3.4) Monocytes # (Auto) 0.31 K/uL (0.11-0.59) Eosinophils # (Auto) 0.12 K/uL (0-0.5) Basophils # (Auto) 0.04 K/uL (0-0.2) RDW Standard Deviation 47.7 fL (36.4-46.3) RDW Coefficient of Variation 14.9 % (11.5-14.5) Immature Granulocyte % (Auto) 0.3 % Immature Granulocyte # (Auto) 0.03 K/uL (0.00-0.02) Anion Gap 6.0 mmol/L (3-11) Est Creatinine Clear Calc Drug Dose 69.4 ml/min Estimated GFR () 106.9 Estimated GFR (Non- 92.2 BUN/Creatinine Ratio 10.0 (10-20) Calcium Level 9.2 mg/dl (8.5-10.1) Total Bilirubin 0.3 mg/dl (0.2-1) Direct Bilirubin < 0.1 mg/dl (0-0.2) Aspartate Amino Transf (AST/SGOT) 9 U/L (15-37) Alanine Aminotransferase (ALT/SGPT) 15 U/L (12-78) Alkaline Phosphatase 64 U/L (45-117) Total Creatine Kinase 37 U/L (26-192) Total Protein 7.7 gm/dl (6.4-8.2) Albumin 4.1 gm/dl (3.4-5.0) Lipase 120 U/L (73-393) Urine Color YELLOW Urine Appearance CLEAR (CLEAR) Urine pH 5.5 (4.5-7.5) Urine Specific Alexander 1.009 (1.000-1.030) Urine Protein NEG (NEG) Urine Glucose (UA) NEG (NEG) Urine Ketones NEG (NEG) Urine Occult Blood NEG (NEG) Urine Nitrite NEG (NEG) Urine Bilirubin NEG (NEG) Urine Urobilinogen NEG (NEG) Urine Leukocyte Esterase NEG (NEG) Urine Opiates Screen NEG (NEG) Urine Methadone, Qualitative NEG (NEG) Urine Barbiturates NEG (NEG) Urine Phencyclidine (PCP) Level NEG (NEG) Ur Amphetamine/Methamphetamine NEG (NEG) MDMA (Ecstasy) Screen NEG (NEG) Urine Benzodiazepines Screen NEG (NEG) Urine Cocaine Metabolite NEG (NEG) Urine Marijuana (THC) NEG (NEG) The above labs were reviewed. CBC, partial renal profile, LFTs and lipase are grossly normal. Urinalysis is unremarkable. Urine drug screen is also negative. Medications Administered Medications (Trade) Dose Ordered Sig/Jocelyn Route Start Time Stop Time Status Last Admin Dose Admin Sodium Chloride (Nss 1000ml) 1,000 ml @ 999 mls/hr Q1H1M STAT IV 07/05/16 15:16 07/05/16 16:16 DC 07/05/16 15:26 999 MLS/HR Ondansetron HCl (Zofran Inj) 4 mg NOW STAT IV 07/05/16 15:16 07/05/16 15:17 DC 07/05/16 15:26 4 MG Morphine Sulfate (MoRPHine SULFATE INJ) 4 mg NOW STAT IV 07/05/16 15:35 07/05/16 15:36 DC 07/05/16 15:39 4 MG Procedure 1. IV hydration: The patient received a liter normal saline bolus 2. IV medications: Morphine 4 mg and Zofran 4 mg IVP ED Course Patient history and physical exam were performed. Nurse's notes were reviewed. Vital signs were reviewed and were normal. I did review a portion a prior medical records from our facility. This is the patient's fifth visit within the past month for abdominal symptoms. Initial. Of time, she has had [address] scans with only mild colonic wall thickening. She has also had 3 normal abdominal obstruction series. I did ask the patient if she has any or chronic pain medication at home that she takes for her pain, and she denies. I did review her last ED visit note, at which time she also applied to her provider that she did not have any narcotic analgesics at home. Review of our medical records shows that the patient is currently on a no narcotic prescription treatment plan as recommended by Dr. Rodriguez, a previous [facility] java flex developer for concern of narcotic abuse. Review of the [place] Prescription Drug Monitoring Program shows that the patient just filled a prescription for Percocet 03/05/16, 2 days ago. She also filled additional oxycodone prescriptions on 06/19, 06/17, 06/03 and 05/31 from 5 different prescribers , only 2 of which are providers in our emergency department. At this point, I had our Signwriterclinical review specialist Epic medical records, showing that the patient has been seen at the [place] emergency department on 06/29, 06/16, 06/02, 05/31, 05/13 , 05/08 and 02/20. On several of those visits, the patient either left AGAINST MEDICAL ADVICE, eloped or left without being seen. The Signwriter also reviewed additional outpatient notes, showing that she has been a no-show at her gastroenterology office in the past. Her next appointment is scheduled for 07/13/16. She was seen in the GI office by Dr. Viramontes on 06/02/16. I attempted to contact Dr. Viramontes, who was at the [facility]'s office, but was in a meeting. I discussed the case with TAYLOR Tobias who was also concerned given the patient's possible narcotic seeking behavior. The patient is noted to have significant fistulous Crohn's disease, therefore she suggested checking labs, including stool cultures and C. difficile screen. IV access was established, and labs were drawn. The patient was hydrated with normal saline, and received IV morphine and Zofran. Prior to treatment, I did express my concern for the patient lying to me about not having prescription analgesics at home. At this point, labs were ordered. The patient was unable to provide a stool sample. While we were awaiting these labs to be completed, the patient told her nurse that her daughter was in an auto accident, and she had to leave. She was instructed to follow-up with her java flex developer for further reevaluation and management. She was not provided any prescription analgesics. At this point, I am concerned that the patient is exhibiting narcotic seeking behavior, and suggest that she not receive any narcotic analgesics with future visits. Medical Decision [place] Drug Monitoring Program Search Results: patient reviewed within database, see additional documentation Impression Primary Impression: Abdominal pain Additional Impression: History of Crohn's disease Departure Information Dispostion Home / Self-Care Condition GOOD Forms Call Back Authorization, HOME CARE DOCUMENTATION FORM, IMPORTANT VISIT INFORMATION Patient Instructions My [facility] Additional Instructions Follow-up with your java flex developer and family doctor for further management. Seek further ER evaluation for any developing fever, rectal bleeding or persistent vomiting. Clear liquid diet until symptoms improve. Problem Qualifiers
== END 2016-07-05 17:00 | disposition home or self-care (01) ==
LOC: C.EDB 14:17
DX: R10.9 Unspecified abdominal pain (principal); K50.90 Crohn's disease, unspecified, without complications; F17.200 Nicotine dependence, unspecified, uncomplicated; Z79.899 Other long term (current) drug therapy; Z88.0 Allergy status to penicillin; Z88.8 Allergy status to other drugs, medicaments and biological substances; Z83.79 Family history of other diseases of the digestive system; Z84.1 Family history of disorders of kidney and ureter